=== PATIENT | female | born 1940 | race Caucasian/White ===

== ENCOUNTER → 2016-10-18 | Outpatient (CLI) | payer MEDICARE, OTHER ==
[2016-10-18 08:58] LABS: CHLORIDE,CL 108 mmol/L (98-110); SODIUM,NA 141 mmol/L (136-146)
== END ==
LOC: MW.CHFP 07:51
PROVIDERS: ATTEND Emergency Medicine
DX: R73.09 Other abnormal glucose (principal); E78.5 Hyperlipidemia, unspecified; J45.909 Unspecified asthma, uncomplicated
CPT/HCPCS: 36415; 80048; 80061; 83036; 84443; 85025; 99214

== ENCOUNTER 2023-11-18 13:18 | Inpatient (IN) | payer MEDICARE, OTHER ==
[2023-11-18 13:37] LABS: BASE EXCESS VENOUS -5.6 (-2.0-3.0); HEMATOCRIT 42.6 % (37.0-47.0); HEMOGLOBIN 14.9 g/dL (12.0-16.0); MEAN CORPUSCULAR HEMOGLOBIN 30.4 pg (28.0-32.0); MEAN CORPUSCULAR VOLUME 86.9 fL (83.0-99.0); MEAN PLATELET VOLUME 10.5 fL (9.4-12.3); PH,VENOUS 7.3 (7.31-7.41); PLATELET COUNT,PLT 362 K/uL (150-400); WHITE BLOOD CELL COUNT,WBC 26.29 K/uL (3.9-11.3)
[2023-11-18] MEDS: Sodium Chloride 0.9% 1,000 ML IV ONE (13:39)
[2023-11-18] MEDS: Cefepime 2 GM in Sodium Chloride 0.9% 50 ML IV STA (13:39)
[2023-11-18] MEDS: Sodium Chloride 0.9% 10 ML Syringe FLUSH PRN (13:40)
[2023-11-18] MEDS: Sodium Chloride 0.9% 2.5 ML Syringe FLUSH PRN (13:40)
[2023-11-18 13:57] LABS: INR 1.18 (0.86-1.11); PTT,PARTIAL THROMBOPLSTIN TIME 31.3 SEC (23.9-30.7)
[2023-11-18 14:10] LABS: LACTIC ACID 2.7 mmol/L (0.4-2.0)
[2023-11-18 14:18] LABS: A/G RATIO 0.8 (0.9-1.6); ALANINE AMINOTRANSFERASE,ALT 109 IU/L (14-63); ALBUMIN 2.7 g/dL (3.4-5.0); ALKALINE PHOSPHATASE 72 U/L (46-116); ASPARTATE AMNIOTRANSFERASE,AST 174 IU/L (15-37); BILIRUBIN TOTAL 0.6 mg/dL (0.2-1.0); BLOOD UREA NITROGEN,BUN 101 mg/dL (7.0-18.0); CALCIUM 9.3 mg/dL (8.5-10.1); CARBON DIOXIDE,CO2 20.5 mmol/L (21.0-32.0); CHLORIDE,CL 104 mmol/L (98-107); CREATININE 2.4 mg/dL (0.6-1.0); GLUCOSE RANDOM 157 mg/dL (74-106); POTASSIUM,K 4.7 mmol/L (3.5-5.1); PROTEIN TOTAL,TP 6.3 g/dL (6.4-8.2); SODIUM,NA 140 mmol/L (136-145)
[2023-11-18] MEDS: VANCOmycin 1.25 GM/250 ML 1.25 GM in Premix Bag 1 BAG IV ONE (14:18)
[2023-11-18 14:19] LABS: ESTIMATED GFR 19 mL/min (>60)
[2023-11-18 14:28] LABS: APPEARANCE,URINE SLT CLOUDY; COLOR,URINE YELLOW; GLUCOSE,URINE NEGATIVE (NEGATIVE); KETONES,URINE TRACE mg/dL (NEGATIVE); LEUKOCYTE ESTERASE,URINE NEGATIVE (NEGATIVE); NITRITE,URINE NEGATIVE (NEGATIVE); OCCULT BLOOD,URINE LARGE (NEGATIVE); PROTEIN,URINE 30 mg/dL (NEGATIVE); UROBILINOGEN,URINE 0.2 EU/dL (<2.0)
[2023-11-18 14:37] LABS: BAND ABSOLUTE MAN 0.79; BAND PERCENT MAN 3 %; LYMPHOCYTES ABSOLUTE MAN 2.63 K/uL (1.00-4.80); LYMPHOCYTES PERCENT MAN 10 % (24-44); MONOCYTES ABSOLUTE MAN 3.15 K/uL (0.00-0.80); MONOCYTES PERCENT MAN 12 % (0-8); SEG NEUTROPHILS ABSOLUTE MAN 19.72 K/uL (1.80-7.70); SEG NEUTROPHILS PERCENT MAN 75 % (41-71)
[2023-11-18 14:38] LABS: BILIRUBIN,URINE SMALL (NEGATIVE)
[2023-11-18 14:39] LABS: BACTERIA,URINE FEW (NEGATIVE); COARSE GRANULAR CASTS,URINE 0-2 (NEGATIVE); EPITHELIAL CELLS,URINE FEW (NONE-FEW); FINE GRANULAR CASTS,URINE 0-2 (NEGATIVE)
[2023-11-18 14:40] LABS: MUCUS,URINE MODERATE (NONE-MOD)
[2023-11-18 15:06] LABS: BASE EXCESS ARTERIAL -6.9 (-2.0-3.0); BICARBONATE,ARTERIAL 17 mEq/L (22-26); PCO2 ARTERIAL 31 mmHG (35-45); PO2 ARTERIAL 251 mmHG (80-105)
[2023-11-18 15:25] LABS: CORONAVIRUS COVID-19 NAA NEGATIVE (NEGATIVE); INFLUENZA A NAA NEGATIVE (NEGATIVE); INFLUENZA B NAA NEGATIVE (NEGATIVE); RESPIRATORY SYNCYTIAL VIR NAA NEGATIVE (NEGATIVE)
[2023-11-18] MEDS: Sodium Chloride 0.9% 1,000 ML IV SCH ×2 (15:46→23:18)
[2023-11-18] MEDS: Diltiazem 25 MG/5 ML SDV IVPUSH ONE (15:57)
[2023-11-18 16:22] LABS: BASOPHILS ABSOLUTE AUTO 0.07 K/uL (0.00-0.20); BASOPHILS PERCENT AUTO 0.2 % (0.0-1.0); HEMATOCRIT 42.3 % (37.0-47.0); HEMOGLOBIN 14.5 g/dL (12.0-16.0); IMMATURE GRAN ABSOLUTE AUTO 0.27 K/uL (0.00-0.05); IMMATURE GRAN PERCENT AUTO 0.9 % (0.0-0.4); LYMPHOCYTES ABSOLUTE AUTO 2.34 K/uL (1.00-4.80); LYMPHOCYTES PERCENT AUTO 7.9 % (24.0-44.0); MEAN CORPUSCULAR HEMOGLOBIN 30.8 pg (28.0-32.0); MEAN CORPUSCULAR HGB CONC 34.3 g/dL (32.0-36.0); MEAN CORPUSCULAR VOLUME 89.8 fL (83.0-99.0); MEAN PLATELET VOLUME 11.2 fL (9.4-12.3); MONOCYTES ABSOLUTE AUTO 4.32 K/uL (0.00-0.80); MONOCYTES PERCENT AUTO 14.6 % (0.0-8.0); NEUTROPHILS ABSOLUTE AUTO 22.69 K/uL (1.80-7.70); NEUTROPHILS PERCENT AUTO 76.4 % (41.0-71.0); PLATELET COUNT,PLT 199 K/uL (150-400); RED BLOOD CELL COUNT 4.71 M/uL (4.10-5.30); WHITE BLOOD CELL COUNT,WBC 29.69 K/uL (3.9-11.3)
[2023-11-18 16:28] LABS: BLOOD UREA NITROGEN,BUN 106 mg/dL (7.0-18.0); CALCIUM 8.8 mg/dL (8.5-10.1); CARBON DIOXIDE,CO2 19.8 mmol/L (21.0-32.0); CHLORIDE,CL 107 mmol/L (98-107); CREATININE 2.2 mg/dL (0.6-1.0); GLUCOSE RANDOM 134 mg/dL (74-106); POTASSIUM,K 4.6 mmol/L (3.5-5.1); SODIUM,NA 142 mmol/L (136-145)
[2023-11-18 16:32] LABS: ESTIMATED GFR 22 mL/min (>60)
[2023-11-18] MEDS: Pantoprazole 80 MG in Sodium Chloride 0.9% 10 ML IVPUSH ONE (16:40)
[2023-11-18] MEDS: Heparin Sodium 5,000 Units/ML Vial IVPUSH ONE ×2 (16:40→18:51)
[2023-11-18] MEDS: Heparin Sodium/0.45% NaCl 500 ML IV SCH (16:41)
[2023-11-18] MEDS: Iopamidol 755 Mg/ML 100 ML Bottle IVPUSH STA (16:51)
[2023-11-18] MEDS: Cefepime 2 GM in Sodium Chloride 0.9% 50 ML IV SCH (22:14)
[2023-11-18] MEDS: Diltiazem 100 MG in Sodium Chloride 0.9% 100 ML IV SCH (22:30)
[2023-11-18 23:09] LABS: CREATINE KINASE,CK 5466 U/L (26-308)
[2023-11-19 04:12] LABS: HEMATOCRIT 41.3 % (37.0-47.0); HEMOGLOBIN 13.9 g/dL (12.0-16.0); MEAN CORPUSCULAR HEMOGLOBIN 30.5 pg (28.0-32.0); MEAN CORPUSCULAR HGB CONC 33.7 g/dL (32.0-36.0); MEAN CORPUSCULAR VOLUME 90.6 fL (83.0-99.0); MEAN PLATELET VOLUME 10.6 fL (9.4-12.3); PLATELET COUNT,PLT 307 K/uL (150-400); RED BLOOD CELL COUNT 4.56 M/uL (4.10-5.30); WHITE BLOOD CELL COUNT,WBC 28.51 K/uL (3.9-11.3)
[2023-11-19 04:44] LABS: A/G RATIO 0.7 (0.9-1.6); ALBUMIN 2.3 g/dL (3.4-5.0); BILIRUBIN TOTAL 0.7 mg/dL (0.2-1.0); CALCIUM 8.4 mg/dL (8.5-10.1); CARBON DIOXIDE,CO2 19.8 mmol/L (21.0-32.0); CREATININE 1.7 mg/dL (0.6-1.0); EST CRCL DRUG DOSING (CG) 19.48 mL/min; PROTEIN TOTAL,TP 5.5 g/dL (6.4-8.2)
[2023-11-19] MEDS: Pantoprazole 40 MG in Sodium Chloride 0.9% 10 ML IVPUSH SCH (08:26)
[2023-11-19] MEDS: Sodium Chloride 0.45% 1,000 ML IV SCH (09:19)
[2023-11-19] MEDS ORDERED: Albuterol/Ipratropium 3.0-0.5 MG/3 ML Neb Soln NEB PRN (11:11)
[2023-11-19] MEDS ORDERED: Morphine 2 MG/ML SYRINGE IVPUSH PRN (11:20)
[2023-11-20] MEDS ORDERED: Cefepime 2 GM in Sodium Chloride 0.9% 50 ML IV SCH (06:00)
[2023-11-23 05:07] LABS: V ZOSTER IGG >4000.0 IV; V ZOSTER IGM 1.17 ISR (<=0.90)
== END 2023-11-19 21:10 | DRG 871 ==
LOC: MW.ED 13:18 → MW.ICU 17:17
PROVIDERS: ADMIT Internal Medicine; ATTEND Internal Medicine
PROC: 4A033R1 Measurement of Arterial Saturation, Peripheral, Percutaneous Approach (ICD-10-PCS; principal; 2023-11-18)
PROC: 3E03329 Introduction of Other Anti-infective into Peripheral Vein, Percutaneous Approach (ICD-10-PCS; 2023-11-18)
DX: A41.9 Sepsis, unspecified organism (principal); I26.94 Multiple subsegmental thrombotic pulmonary emboli without acute cor pulmonale; J96.01 Acute respiratory failure with hypoxia; L03.313 Cellulitis of chest wall; I26.99 Other pulmonary embolism without acute cor pulmonale; E87.20 Acidosis, unspecified; N17.9 Acute kidney failure, unspecified; G93.40 Encephalopathy, unspecified; M62.82 Rhabdomyolysis; R19.5 Other fecal abnormalities; B02.9 Zoster without complications; L03.312 Cellulitis of back [any part except buttock and flank]; B02.7 Disseminated zoster; E87.0 Hyperosmolality and hypernatremia; J45.909 Unspecified asthma, uncomplicated; I48.91 Unspecified atrial fibrillation; R74.01 Elevation of levels of liver transaminase levels; R79.89 Other specified abnormal findings of blood chemistry; L89.891 Pressure ulcer of other site, stage 1; R65.20 Severe sepsis without septic shock; F32.A Depression, unspecified; F41.9 Anxiety disorder, unspecified; R73.9 Hyperglycemia, unspecified; E78.5 Hyperlipidemia, unspecified; E03.9 Hypothyroidism, unspecified; K44.9 Diaphragmatic hernia without obstruction or gangrene; Z88.8 Allergy status to other drugs, medicaments and biological substances; Z88.1 Allergy status to other antibiotic agents; Z88.0 Allergy status to penicillin; Z87.891 Personal history of nicotine dependence; R21 Rash and other nonspecific skin eruption
CPT/HCPCS: 0241U; 36415; 36600; 70450; 71045; 71275; 74177; 80048; 80053; 81001; 82272; 82550; 82803; 82947; 83605; 84484; 85025; 85027; 85610; 85730; 86787; 87040; 87070; 87205; 93005; 93306; 97163; 93010; 99291; 99292; C9113; J0133; J0692; J1644; J3370; J3490; J7030; Q9967

== ENCOUNTER 2024-01-28 11:46 | Emergency (ER) | payer MEDICARE ==
[2024-01-28 12:15] LABS: BASOPHILS ABSOLUTE AUTO 0.08 K/uL (0.00-0.20); BASOPHILS PERCENT AUTO 0.6 % (0.0-1.0); EOSINOPHILS ABSOLUTE AUTO 0.54 K/uL (0.00-0.45); EOSINOPHILS PERCENT AUTO 4.1 % (0.0-6.0); HEMATOCRIT 28.7 % (37.0-47.0); HEMOGLOBIN 9.4 g/dL (12.0-16.0); IMMATURE GRAN ABSOLUTE AUTO 0.06 K/uL (0.00-0.05); IMMATURE GRAN PERCENT AUTO 0.5 % (0.0-0.4); LYMPHOCYTES ABSOLUTE AUTO 2.73 K/uL (1.00-4.80); LYMPHOCYTES PERCENT AUTO 20.8 % (24.0-44.0); MEAN CORPUSCULAR HEMOGLOBIN 29.4 pg (28.0-32.0); MEAN CORPUSCULAR HGB CONC 32.8 g/dL (32.0-36.0); MEAN CORPUSCULAR VOLUME 89.7 fL (83.0-99.0); MEAN PLATELET VOLUME 9.5 fL (9.4-12.3); MONOCYTES ABSOLUTE AUTO 0.93 K/uL (0.00-0.80); MONOCYTES PERCENT AUTO 7.1 % (0.0-8.0); NEUTROPHILS ABSOLUTE AUTO 8.77 K/uL (1.80-7.70); NEUTROPHILS PERCENT AUTO 66.9 % (41.0-71.0); PLATELET COUNT,PLT 433 K/uL (150-400); WHITE BLOOD CELL COUNT,WBC 13.11 K/uL (3.9-11.3)
[2024-01-28 12:42] LABS: A/G RATIO 0.8 (0.9-1.6); ALANINE AMINOTRANSFERASE,ALT 19 IU/L (14-63); ALBUMIN 2.9 g/dL (3.4-5.0); ALKALINE PHOSPHATASE 76 U/L (46-116); ASPARTATE AMNIOTRANSFERASE,AST 13 IU/L (15-37); BILIRUBIN TOTAL 0.3 mg/dL (0.2-1.0); BLOOD UREA NITROGEN,BUN 17 mg/dL (7.0-18.0); CALCIUM 9.1 mg/dL (8.5-10.1); CARBON DIOXIDE,CO2 20.5 mmol/L (21.0-32.0); CHLORIDE,CL 109 mmol/L (98-107); CREATINE KINASE,CK 58 U/L (26-308); CREATININE 1.1 mg/dL (0.6-1.0); GLUCOSE RANDOM 104 mg/dL (74-106); POTASSIUM,K 3.8 mmol/L (3.5-5.1); PROTEIN TOTAL,TP 6.5 g/dL (6.4-8.2); SODIUM,NA 143 mmol/L (136-145)
[2024-01-28 12:48] LABS: ESTIMATED GFR 50 mL/min (>60)
[2024-01-28] MEDS: Sodium Chloride 0.9% 2.5 ML Syringe FLUSH PRN (12:49)
[2024-01-28] MEDS: Sodium Chloride 0.9% 10 ML Syringe FLUSH PRN (12:49)
== END 2024-01-28 17:17 | disposition home or self-care (01) ==
LOC: MW.ED 11:46
DX: S00.83XA Contusion of other part of head, initial encounter (principal); D64.9 Anemia, unspecified; I48.91 Unspecified atrial fibrillation; Z86.711 Personal history of pulmonary embolism; Z79.01 Long term (current) use of anticoagulants; Z88.1 Allergy status to other antibiotic agents; Z88.0 Allergy status to penicillin; Z88.8 Allergy status to other drugs, medicaments and biological substances; Z79.890 Hormone replacement therapy; Z79.899 Other long term (current) drug therapy; W01.198A Fall on same level from slipping, tripping and stumbling with subsequent striking against other object, initial encounter
CPT/HCPCS: 36415; 70450; 70486; 72125; 80053; 82550; 84484; 85025; 93005; 99284; J3490; 93010; 99283